=== PATIENT | male | born 1975 | race African-American/Black ===

== ENCOUNTER 2023-12-19 21:41 | Emergency (ER) | payer MEDICAID ==
[~2023-12-19] VITALS: Ht 170.2 cm; Wt 82.0 kg
[2023-12-19 21:56] VITALS: O2SAT 99
[2023-12-19] MEDS ORDERED: CLIN-194 MT (23:49)
[2023-12-19] MEDS ORDERED: MUPI1OIN4 TP (23:50)
[2023-12-20] MEDS: CEFTRIAXONE SODIUM 1G VIAL IM ONE (00:43)
[2023-12-20 00:51] VITALS: BP 140/55; PULSE 94; RESP 16; TEMP 97.8
== END 2023-12-20 00:54 | disposition home or self-care (01) ==
LOC: ER 21:41
DX: L03.211 Cellulitis of face (principal)
CPT/HCPCS: 99283; 96372; J0696